=== PATIENT | male | born 1975 | race Asian ===

== ENCOUNTER → 2022-06-18 11:33 | Outpatient (CLI) | payer OTHER, SELFPAY ==
[2022-06-18 12:18] LABS: Add Manual Diff / Slide Review NO; Basophils Absolute Auto 0 /uL (0-100); Basophils Percent Auto 0.7 % (0-2); Eosinophils Absolute Auto 100 /uL (0-450); Eosinophils Percent Auto 1.1 % (2-4); Hematocrit 46.5 % (41-53); Lymphocytes Absolute Auto 1400 /uL (1100-4500); Lymphocytes Percent Auto 25.9 % (25-40); Mean Corpuscular HGB Conc 34.5 % (30-36); Mean Corpuscular Hemoglobin 31.5 PG (26-34); Mean Corpuscular Volume 91.3 fL (80-100); Monocytes Absolute Auto 300 /uL (0-900); Neutrophils Absolute Auto 3600 /uL (1500-7000); Neutrophils Percent Auto 67.3 % (50-75); Platelet Count 257 X10^3/uL (150-400); Red Blood Cell Count 5.09 X10^6/uL (4.5-5.9); Red Cell Distribution Width 12.8 % (11.6-14.8); White Blood Cell Count 5.3 X10^3/uL (4.5-11.0)
[2022-06-18 13:09] LABS: Alanine Aminotransferase 21 IU/L (<50); Albumin 4.3 g/dL (3.5-5.0); Albumin Globulin Ratio 1.9 (1.0-2.8); Alkaline Phosphatase 55 U/L (38-126); Aspartate Aminotransferase 20 IU/L (17-59); BUN Creatinine Ratio 13.1 (6-22); Blood Urea Nitrogen 11 mg/dL (9-20); Calcium 8.9 mg/dL (8.4-10.2); Carbon Dioxide 25 mmol/L (22-32); Chloride 104 mmol/L (98-107); Estimated Glomerular Filt Rate > 60 mL/min (>60); Globulin 2.3 g/dL (1.7-4.1); Glucose 95 mg/dL (70-100); HEMOLYSIS < 15 (0-50); Lipase 62 U/L (23-300); Potassium 4.7 mmol/L (3.4-5.1); Sodium 140 mmol/L (137-145); Total Protein 6.6 g/dL (6.3-8.2)
== END ==
PROVIDERS: PCP Family Medicine; Referring Provider Family Medicine; Visit Provider Family Medicine
DX: R10.9 Unspecified abdominal pain (principal); R14.0 Abdominal distension (gaseous); R19.7 Diarrhea, unspecified
CPT/HCPCS: 36415; 80053; 83690; 85025; 87045; 87899

== ENCOUNTER 2022-08-31 06:48 | Day surgery (SDC) | payer OTHER, SELFPAY ==
--- NOTE | 2022-08-31 | PATH_ITS ---
[facility] Accession Number: [id number] No. of containers..02 Tissue . 01 Material submitted: . PART A: colon - DESCENDING COLON POLYP PART B: rectum - RECTAL BIOPSY . 01 Diagnosis: A. Descending Colon, Polyp, Biopsy: Tubular adenoma in 2 of 4 fragments. Benign lymphoid aggregate in 2 fragments. . B. Rectum, Biopsy: Rectal mucosa with mildly extravasated red blood cells in the lamina propria. Please see comment. Negative for active, chronic and microscopic colitis. Negative for dysplasia and malignancy. [facility] 09/05/2022 1111 Local . 01 Comment: The rectal mucosa shows mild distortion of the crypt architecture, within normal limits for rectal mucosa, with mild extravasation of red blood cells in the lamina propria. The differential diagnosis includes procedure related changes, trauma/prolapse, and early ischemia-type changes. . . 01 Electronically signed: . Magaly Garcia MD, Pathologist NPI- [id number] . 01 Gross description: . Part A: DESCENDING COLON POLYP: Received in formalin are 4 fragment(s) of arcos, soft tissue measuring 0.1 x 0.1 x 0.1 cm to 0.3 x 0.2 x 0.2 cm submitted entirely in 1 cassette(s) Part B: RECTAL BIOPSY: Received in formalin is 1 fragment(s) of arcos, soft tissue measuring 0.2 x 0.2 x 0.1 cm submitted entirely in 1 cassette(s) /KATHLEEN 09/03/2022 1916 Local . 01 Pathologist provided ICD-10: D12.4 . 01 CPT . 310732, [id number] Specimen Comment: A courtesy copy of this report has been sent to [facility] Pathology Performed at: 01 [facility] [address] [place] [address], [place], [place] [id number] MD Kory Mccormack MD Phone: [phone]
[2022-08-31 07:20] VITALS: BMI 26.2
[2022-08-31 07:44] VITALS: BP 140/82; PULSE 75; RESP 75; TEMP 35.8; O2SAT 98
--- NOTE | 2022-08-31 08:49 | P.HP_ITS ---
History of Present Illness History of Present Illness Date Patient Seen: 08/31/22 Time Patient Seen: 08:49 Chief complaint: Colonocopy Narrative: Mr. Varma is a 46-year-old male who presents today for a screening colonoscopy. He has no family history of colon cancer however his father suddenly of cancer which was potentially originating in the stomach or possibly the kidney. He so quickly that they never really were sure where it started. His father did have colon polyps and had colonoscopies. He also has a friend who has been suddenly diagnose stage IV colon cancer and is under treatment and doing well but part of the impetus for screening comes from this experience. Most importantly the reason he is getting a colonoscopy today is because he has noticed a change in bowel habits. He will have several days of constipation and then it follows with diarrhea. He is also noticed a change in stool caliber and this stool is quite thin. He additionally felt that he has some kind of a mass in the anal area though he is not sure if it is a hemorrhoid it feels hard to him. The primary care physician has not examined this area and that is something he would like to investigate today as well. Otherwise he has no questions. [facility] Medical History (Updated 08/31/22 @ 08:53 by Mary Fowler MD) Allergies (~1975) Chronic back pain Plantar fasciitis Plantar warts (~2002) Recurrent sinusitis (~1991) Surgical History (Updated 11/28/21 @ 19:14 by Myrtle Morales) Anesthesia History of appendectomy (~1989) History of rhinoplasty (~2019) History of surgery (~2002) History of vasectomy (~2014) Family History (Updated 11/28/21 @ 19:14 by Myrtle Morales) Father Cancer Social History Smoking Status: Never smoker alcohol intake: current Meds Home Medications and Allergies Allergies Allergy/AdvReac Type Severity Reaction Status Date / Time No Known Drug Allergies Allergy Verified 08/31/22 07:26 Exam Vital Signs (past 8 hours): - 08/31/22 07:44 Temperature 96.5 F L Pulse Rate 75 Respiratory Rate 75 H Blood Pressure 140/82 Pulse Oximetry 98 Oxygen Delivery Method Room Air Oxygen Delivery Method Room Air Const General: cooperative, healthy appearing and comfortable Nutritional Appearance: average body habitus HENMT Head: normal to inspection Eyes General: appearance normal, both eyes and all related structures Resp Effort & Inspection: normal respiratory effort and able to speak in complete sentences Cardio Pulses: radial pulses present GI Palpation: soft and No tender Extrem General: normal to inspection Assessment & Plan Assessment and plan (1) Change in stool caliber: Status: Acute (2) Diarrhea: Status: Acute (3) Constipation: Status: Acute (4) Change in bowel habits: Status: Acute (5) Rectal mass: Status: Acute (6) Colon cancer screening: Status: Acute Assessment & Plan narrative: Presents today for screening colonoscopy I discussed the risks benefits and alternatives including but not limited to perforation of the colon and an incomplete exam he fully understands these risks and would like to proceed.
[2022-08-31 09:33] VITALS: BP 111/61; PULSE 72; RESP 12; TEMP 36.1; O2SAT 96
[2022-08-31 09:38] VITALS: BP 102/61; PULSE 69; RESP 14; O2SAT 96
[2022-08-31 09:43] VITALS: BP 103/63; PULSE 72; RESP 14; TEMP 36.1; O2SAT 97
[2022-08-31 09:49] VITALS: BP 112/69; PULSE 69; RESP 12; TEMP 36.1; O2SAT 97
[2022-08-31 09:52] VITALS: BP 110/75; PULSE 60; RESP 14; O2SAT 97
--- NOTE | 2022-08-31 14:32 | PM.OP.COLON ---
Operative Date/Time/Diagnoses Date of procedure: 08/31/22 Pre-op diagnosis: Colon cancer screening, change in bowel habits, possible rectal mass, change in stool caliber, diarrhea, constipation Post-op diagnosis: same Procedure & Clinicians Study performed: Colonoscopy and biopsy Indications: Please see H&P. Patient has been having changes in bowel habits that are concerning. Surgeon: Mary Fowler Procedure Notes Procedure in detail: Patient was taken to the endoscopy suite and placed in a left lateral decubitus position. A time-out was performed and conscious sedation was induced with the help of anesthesiologist. Digital rectal exam was performed. There were no masses or strictures and the colonoscope was introduced into the anal canal. The scope was advanced through to the cecum. Several right-sided diverticula were seen. A photograph was obtained of the appendiceal orifice. The bowel prep was excellent: Hazard bowel prep score of 3. The scope was slowly withdrawn for 20 minutes. There was 1 small descending colon polyp that was removed entirely with the forceps and sent for pathology. There was some inflammation in the rectal area which was biopsied for specimen. The scope was retroflexed photograph was obtained of the hemorrhoidal piles. There did appear to be some engorged internal hemorrhoids present. Patient tolerated the procedure well and went in good condition to postoperative care unit there were no complications. Findings: internal hemorrhoids and polyp(s) Specimen(s): other (1. Descending colon polyp 2. Rectal biopsy) Complications: none Post-procedure Plan for aftercare: Will send letter with result from 1 colon polyp but generally the follow-up recommendation with no change in family history and no new symptoms would be between 7 and 10 years.
== END 2022-08-31 10:10 | disposition home or self-care (01) ==
PROVIDERS: PCP Family Medicine; Referring Provider Surgery; Visit Provider Surgery
PROC: 0DJD8ZZ Inspection of Lower Intestinal Tract, Via Natural or Artificial Opening Endoscopic (ICD-10-PCS; CPT 45378; principal; 2022-08-31 08:45)
DX: R19.4 Change in bowel habit (principal); K64.8 Other hemorrhoids; D12.4 Benign neoplasm of descending colon
CPT/HCPCS: 45380; J2704

== ENCOUNTER → 2024-03-18 08:16 | Outpatient (CLI) | payer OTHER, SELFPAY ==
[2024-03-18 09:13] LABS: Add Manual Diff / Slide Review NO; Basophils Absolute Auto 0 /uL (0-100); Basophils Percent Auto 0.9 % (0-2); Eosinophils Absolute Auto 100 /uL (0-450); Eosinophils Percent Auto 1.5 % (2-4); Hemoglobin 16.4 g/dL (13.5-17.5); Hemoglobin A1C% w Est Avg Glu 5.2 % (4.0-6.0); Lymphocytes Absolute Auto 1500 /uL (1100-4500); Lymphocytes Percent Auto 27.8 % (25-40); Mean Corpuscular Hemoglobin 31.9 PG (26-34); Monocytes Absolute Auto 300 /uL (0-900); Monocytes Percent Auto 5.4 % (3-14); Neutrophils Absolute Auto 3600 /uL (1500-7000); Neutrophils Percent Auto 64.4 % (50-75); Platelet Count 243 X10^3/uL (150-400); Red Blood Cell Count 5.16 X10^6/uL (4.5-5.9); Red Cell Distribution Width 12.6 % (11.6-14.8); White Blood Cell Count 5.5 X10^3/uL (4.5-11.0)
[2024-03-18 09:29] LABS: Alanine Aminotransferase 33 IU/L (<50); Albumin 4.3 g/dL (3.5-5.0); Alkaline Phosphatase 57 U/L (38-126); Aspartate Aminotransferase 24 IU/L (17-59); BUN Creatinine Ratio 16.2 (6-22); Bilirubin Total 0.9 mg/dL (0.2-1.3); Blood Urea Nitrogen 16 mg/dL (9-20); Calcium 9.3 mg/dL (8.4-10.2); Carbon Dioxide 23 mmol/L (22-32); Chloride 106 mmol/L (98-107); Cholesterol 167 mg/dL (140-199); Estimated Glomerular Filt Rate > 60 mL/min (>60); Globulin 2.2 g/dL (1.7-4.1); Glucose 103 mg/dL (70-100); HDL Cholesterol 37 mg/dL (40-60); HEMOLYSIS < 15 (0-50); LDL Cholesterol Calculated 82 mg/dL (<100); Potassium 4.3 mmol/L (3.4-5.1); Sodium 137 mmol/L (137-145); Total Protein 6.5 g/dL (6.3-8.2); Triglycerides 242 mg/dL (35-150)
[2024-03-19 08:11] LABS: Apolipoprotein A1 139 mg/dL (101-178)
== END ==
PROVIDERS: PCP Family Medicine; Referring Provider Family Medicine; Visit Provider Family Medicine
DX: Z00.00 Encounter for general adult medical examination without abnormal findings (principal); Z13.220 Encounter for screening for lipoid disorders; R73.02 Impaired glucose tolerance (oral)
CPT/HCPCS: 36415; 80053; 80061; 82172; 83036; 85025

== ENCOUNTER → 2024-12-17 13:19 | Outpatient (CLI) | payer OTHER, SELFPAY ==
--- NOTE | 2024-12-17 13:21 | DI.RAD.S_ITS ---
PROCEDURE: XR CERVICAL SPINE 5V INDICATIONS: NECK PAIN TECHNIQUE: 5 views of the cervical spine acquired. COMPARISON: None. FINDINGS: Straightening of the normal cervical lordosis. Degenerative changes with disc space narrowing, osteophytes, uncovertebral and facet hypertrophic changes most notably at C5-6, C6-7. No radiographic evidence of acute fracture, subluxation or abnormal prevertebral soft tissue swelling. IMPRESSION: Degenerative changes as discussed above. If symptoms persist or worsen, or there is high clinical suspicion of cervical abnormality, MRI could be performed. Dictated by: Tan Pratt M.D. on 12/17/2024 at 14:24 Approved by: Tan Pratt M.D. on 12/17/2024 at 14:32
== END ==
PROVIDERS: PCP Family Medicine; Referring Provider Physical Medicine & Rehabilitation; Visit Provider Physical Medicine & Rehabilitation
DX: M47.812 Spondylosis without myelopathy or radiculopathy, cervical region (principal); M54.2 Cervicalgia
CPT/HCPCS: 72050

== ENCOUNTER → 2025-03-22 13:34 | Outpatient (CLI) | payer OTHER, SELFPAY ==
[2025-03-22 14:24] LABS: Add Manual Diff / Slide Review NO; Hematocrit 48.5 % (41-53); Hemoglobin 17.0 g/dL (13.5-17.5); Lymphocytes Absolute Auto 1400 /uL (1100-4500); Mean Corpuscular HGB Conc 34.9 % (30-36); Mean Corpuscular Hemoglobin 31.8 PG (26-34); Mean Corpuscular Volume 91.1 fL (80-100); Platelet Count 249 X10^3/uL (150-400)
[2025-03-22 14:31] LABS: Hemoglobin A1C% w Est Avg Glu 5.4 % (4.0-6.0)
[2025-03-22 14:54] LABS: Alanine Aminotransferase 39 IU/L (<50); Albumin 4.6 g/dL (3.5-5.0); Albumin Globulin Ratio 1.8 (1.0-2.8); Alkaline Phosphatase 62 U/L (38-126); Blood Urea Nitrogen 13 mg/dL (9-20); Calcium 9.4 mg/dL (8.4-10.2); Carbon Dioxide 24 mmol/L (22-32); Chloride 104 mmol/L (98-107); Cholesterol 191 mg/dL (140-199); Estimated Glomerular Filt Rate > 60 mL/min (>60); Globulin 2.5 g/dL (1.7-4.1); Glucose 89 mg/dL (70-99); HDL Cholesterol 42 mg/dL (40-60); HEMOLYSIS < 15 (0-50); Potassium 4.4 mmol/L (3.4-5.1); Sodium 139 mmol/L (137-145); Total Protein 7.1 g/dL (6.3-8.2); Triglycerides 332 mg/dL (35-150)
[2025-03-22 15:24] LABS: TSH w/ Reflex to FT4 1.20 uIU/mL (0.47-4.68)
== END ==
PROVIDERS: PCP Family Medicine; Referring Provider Family Medicine; Visit Provider Family Medicine
DX: Z00.00 Encounter for general adult medical examination without abnormal findings (principal); Z12.5 Encounter for screening for malignant neoplasm of prostate; M47.812 Spondylosis without myelopathy or radiculopathy, cervical region; M54.12 Radiculopathy, cervical region; R03.0 Elevated blood-pressure reading, without diagnosis of hypertension; R73.9 Hyperglycemia, unspecified
CPT/HCPCS: 36415; 80053; 80061; 83036; 84443; 85025; G0103